=== PATIENT | female | born 1970 | race Caucasian/White ===

== ENCOUNTER → 2016-10-16 | Outpatient (CLI) | payer OTHER ==
--- NOTE | 2016-10-16 13:42 | KCIC ---
PROCEDURE Maxillofacial CT without contrast. HISTORY Bilateral ear pain, vertigo, chronic sinusitis TECHNIQUE Noncontrast CT imaging was performed of maxillofacial region, multiplanar reconstruction images submitted. Exposure: One or more of the following individualized dose reduction techniques were utilized for this exam: 1. Automated exposure control. 2. Adjustment of the mA and/or kV according to patient size. 3. Use of iterative reconstruction technique. COMPARISON None FINDINGS There are no air-fluid levels of the paranasal sinuses. Paranasal sinuses are aerated. Ostiomeatal units are patent bilaterally. Mastoid air cells are aerated. There is mild deviation of the nasal septum to the right. Globes are symmetric in size and density characteristics, no asymmetric postseptal density identified. IMPRESSION Paranasal sinuses and ostiomeatal units are aerated. Electronically signed by: Erik Larsen MD (Oct 16, 2016 13:40:49)
== END | disposition home or self-care (01) ==
LOC: KCIC CT 13:08
PROVIDERS: ATTEND Otolaryngology
DX: J32.9 Chronic sinusitis, unspecified (principal)
CPT/HCPCS: 70486

== ENCOUNTER 2019-01-21 17:30 | Emergency (ER) | payer BC, OTHER ==
[~2019-01-21] VITALS: Ht 157.5 cm; Wt 68.0 kg
[2019-01-21] MEDS ORDERED: LIDOCAINE WITH 8.4% SOD BICARB 3 ML DISP.SYRIN. INJ ONE (18:00)
[2019-01-21 18:01] VITALS: BP 143/79
--- NOTE | 2019-01-21 18:16 | PHYS DOC ---
Past Medical History Past Medical History: No Pertinent History Past Surgical History: No Surgical History Alcohol Use: Occasionally Drug Use: None Adult General Chief Complaint Chief Complaint: LACERATION/AVULSION HPI HPI Patient is a 48 year old right-handed female who presents to the ED today complaining of left hand laceration, patient accidentally cut herself on a door hernandez. Review of Systems Review of Systems Constitutional: Denies fever or chills [] Musculoskeletal: Denies back pain or joint pain [] Integument: Reports left hand laceration Neurologic: Denies headache, focal weakness or sensory changes [] All other systems were reviewed and found to be within normal limits, except as documented in this note. Current Medications Current Medications Current Medications Medications (Trade) Dose Ordered Sig/Minesh Start Time Stop Time Status Last Admin Dose Admin Lidocaine/Sodium Bicarbonate (Buffered Lidocaine 1%) 3 ml 1X ONCE 01/21/19 18:00 01/21/19 18:06 DC 01/21/19 18:00 3 ML Allergies Allergies Allergies Coded Allergies Type Severity Reaction Last Updated Verified codeine Adverse Reaction Intermediate 01/21/19 Yes Physical Exam Physical Exam Constitutional: Well developed, well nourished, no acute distress, non-toxic appearance. []] Skin: Left dorsal left hand with a laceration approximately 2 cm long, this no obvious tendon involvement. Patient able to flex and extend all the fingers on the left hand. Laceration is along the fourth metacarpal. Adequate radial, medial, ulnar sensation to the left hand. +2 left radial pulse. Cap refill less than 2 seconds the left fingers. Back: No tenderness, no CVA tenderness. [] Extremities: No tenderness, no cyanosis, no clubbing, ROM intact, no edema. [] Neurologic: Alert and oriented X 3, normal motor function, normal sensory function, no focal deficits noted. [] Psychologic: Affect normal, judgement normal, mood normal. [] Current Patient Data Vital Signs Vital Signs Date Time Temp Pulse Resp B/P (MAP) Pulse Ox O2 Delivery O2 Flow Rate FiO2 01/21/19 18:01 98.3 79 18 143/79 (100) 96 Room Air 98.3 EKG EKG [] Radiology/Procedures Radiology/Procedures Laceration/Wound Repair Wound Location: Left hand Wound's Depth, Shape: Horizontal Wound Length (cm): Approximately 2 cm Wound was explored for foreign objects, none was found Irrigated w/ Saline (ccs): 500 Betadine Prep?: Y Anesthesia: 1% buffered lidocaine Volume Anesthetic (ccs): Approximately 2 Wound Repaired With: Vicryl Suture Size/Type: 4.0/interrupted sutures Number of Sutures:4 Progress :[Wound was covered with nonstick dressing Course & Med Decision Making Course & Med Decision Making Pertinent Labs and Imaging studies reviewed. (See chart for details) This is a 48-year-old female patient presenting to the ED today with left hand laceration that was closed by me as noted in procedures. Tetanus up-to-date. Wound care instructions and return precautions provided. Dragon Disclaimer Dragon Disclaimer This electronic medical record was generated, in whole or in part, using a voice recognition dictation system. Departure Departure Impression: Primary Impression: Laceration of left hand Disposition: HOME, SELF-CARE Condition: STABLE Referrals: SARAY RICK MD (PCP) Follow-up with your doctor as needed Patient Instructions: Laceration Care, Adult Additional Instructions: You have left hand laceration that was closed with dissolvable stitches, they will fall off on their own. Keep the area clean and dry. You can shower and wash your hands, do not soak the affected hand. Apply Neosporin to the area twice a day. Monitor the area for signs of infection including but not limited to increased redness, warmth, odor drainage from the area and see her doctor or come back to the ED if they occur. Problem Qualifiers Primary Impression: Laceration of left hand Encounter type: initial encounter Foreign body presence: unspecified Qualified Codes: S61.412A - Laceration without foreign body of left hand, initial encounter MARGIE BASS PHOTOGRAPHY INSTRUCTOR Jan 21, 2019 18:16
== END 2019-01-21 18:18 | disposition home or self-care (01) ==
LOC: ER 17:30
DX: S61.412A Laceration without foreign body of left hand, initial encounter (principal); Z88.5 Allergy status to narcotic agent; W26.8XXA Contact with other sharp object(s), not elsewhere classified, initial encounter; Y93.89 Activity, other specified; Y92.89 Other specified places as the place of occurrence of the external cause; Y99.8 Other external cause status
CPT/HCPCS: 12001; 99283